=== PATIENT | male | born 1990 | race Hispanic/Latino ===

== ENCOUNTER → 2018-08-18 | Day surgery (SDC) | payer BC ==
[~2018-08-18] MED LIST: CLARITIN-D 121 EACH PO; FENTANYL CITRATE/PF 100MCG/2 ML INJ ONE; INHALER INH; LIDOCAINE HCL 2% LOCAL INJ 5 ML SDV VIAL INJ ONE; MIDAZOLAM HCL 2 MG/2 ML VIAL ONE; PROPOFOL IV EMULSION 10 MG/ML 20 ML VIAL ONE
--- OUTSIDE RECORDS SUMMARY | 2018-08-18 11:02 | XMS REPORT ---
Author Author [facility] Address Unknown Phone Unavailable Care Team Providers Care Production Line Mechanic Name Role Phone Unavailable Unavailable Problems This patient has no known problems. Allergies, Adverse Reactions, Alerts This patient has no known allergies or adverse reactions. Medications This patient has no known medications. Encounters Start Date/Time End Date/Time Encounter Type Admission Type Attending Clinicians Care Facility Care Department Encounter ID 2018-08-16 06:32:00 2018-08-16 06:32:00 Outpatient [id number]
[2018-08-18 14:10] VITALS: BP 115/70
--- NOTE | 2018-08-18 19:46 | Operative Report ---
DATE OF PROCEDURE: SURGEON: Erick Jennings MD NAME OF PROCEDURE: Esophagogastroduodenoscopy. PREPROCEDURE DIAGNOSES: The patient with history of dysphagia, dyspepsia, nausea, vomiting, and abdominal pain. DESCRIPTION OF PROCEDURE: After informed and written consent, premedications with monitored anesthesia care, standard adult video Olympus gastroscope was introduced into the mouth, esophagus, stomach, into the second portion of the duodenum. The first and second portion of the duodenum appeared to be normal and biopsies were done. Antrum and body showed gastritis and biopsies were done. No ulcerations were noted. Retroflexion was unremarkable. Minimal erythema was noted at the GE junction and biopsies were done. Biopsies of mid and upper esophagus done to rule out eosinophilic esophagitis. IMPRESSION: Gastritis, rule out gastroesophageal reflux disease. RECOMMENDATIONS: Check results of the biopsies. GERD precautions, PPI over the counter. Further recommendations will be based on the patient's clinical course. If symptoms persist, barium swallow and esophageal manometry maybe required. Erick Jennings MD SR/MODL /[id number]
== END | disposition home or self-care (01) ==
LOC: OR 10:59
PROVIDERS: ATTEND Internal Medicine Gastroenterology
DX: K29.70 Gastritis, unspecified, without bleeding (principal); Z71.3 Dietary counseling and surveillance; E66.01 Morbid (severe) obesity due to excess calories; J45.909 Unspecified asthma, uncomplicated; R06.83 Snoring; Z88.0 Allergy status to penicillin; Z68.41 Body mass index [BMI] 40.0-44.9, adult; Z87.891 Personal history of nicotine dependence; Z80.0 Family history of malignant neoplasm of digestive organs
CPT/HCPCS: 43239; J2001; J2250; J2704